=== PATIENT | male | born 1975 | race Caucasian/White ===

== ENCOUNTER 2016-10-10 16:24 | Emergency (ER) ==
--- NOTE | 2016-10-10 18:05 | Diag Imaging Result Document ---
PROCEDURE NAME: CHEST-2 VIEWS - 10/10/2016 CHEST X-RAY 2 VIEWS: COMPARISON: 09/11/15. FINDINGS: The lungs are normally expanded and clear. Heart size and mediastinal contours are normal. No pneumothorax or pleural effusion. IMPRESSION: Negative exam.
--- NOTE | 2016-10-10 18:08 | PROVIDER DOCUMENTATION ---
HPI-General Adult - General Chief Complaint: Cold Symptoms Stated Complaint: COLD/SINUS SX Time Seen by Provider: 10/10/16 17:39 Source: patient Allergies/Adverse Reactions: Patient Allergies Allergy/AdvReac Type Severity Reaction Status Date / Time latex Allergy Mild ITCHING Verified 06/20/16 14:06 Home Medications: Home Medication List Medication Instructions Recorded Confirmed Last Taken Type Cyclobenzaprine [Flexeril] 10 mg PO TID #20 tablet 06/20/16 Unknown Rx Naproxen 500 mg PO BID PRN #30 tablet 06/20/16 Unknown Rx Azithromycin [Zithromax Z-Lefty] 250 mg PO DIRECTED #1 pkg 10/10/16 Unknown Rx Guaifenesin/D-Methorphan Hb/PE 1 each PO Q6-8H PRN PRN #14 tablet 10/10/16 Unknown Rx [Deconex Dmx Tablet] Prednisone 20 mg PO DAILY #6 tablet 10/10/16 Unknown Rx - History of Present Illness -Gen Adult Nature of Presenting Problems: This pt presents today c complaints of flu-like symptoms X 3-4 days. He reports productive cough, chills, body aches. He is unsure if he has had any fevers. No respiratory distress. No other issues or complaints. Location of Pain/Injury: reports: generalized Quality of Pain: reports: aching Severity: reports: mild Onset/Duration: reports: 4 days ago Timing: reports: still present Modifying Factors: improves with: coughing Associated Symptoms: reports: cough, fatigue, fever/chills, muscle aches, sinus congestion/drainage Similar Symptoms Previously?: No Recently seen or treated by another doctor?: No Review of Systems - Adult - REVIEW OF SYSTEMS - ADULT Constitutional: reports: chills, fatique. denies: night sweats, weight gain Eyes: reports: no symptoms reported. denies: discharge, dry eyes Ears, Nose, Mouth & Throat: reports: sinus problem. denies: ear discharge, ear pain Cardiovascular: reports: no symptoms reported. denies: chest pain, edema Respiratory: reports: cough. denies: chronic cough, pleurisy, shortness of breath Gastrointestinal: reports: no symptoms reported. denies: abdominal pain, hematemesis Genitourinary: reports: no symptoms reported. denies: dysuria, discharge Musculoskeletal: reports: muscle aches. denies: bone pain, back pain Integumentary: reports: no symptoms reported. denies: hives, hair loss Neurological: reports: no symptoms reported. denies: ataxia, dizziness/vertigo Psychiatric: reports: no symptoms reported. denies: anxiety, anti-depressant use Endocrine: reports: no symptoms reported Hematologic/Lymphatic: reports: no symptoms reported Allergic/Immunologic: reports: no symptoms reported All Other Systems: Reviewed and Negative Past History - Adult - PAST MEDICAL HISTORY-ADULT Review of Records: reports: Old Records Reviewed, Nursing Assessment Review, Medications Reviewed, Social history reviewed & non-contributory. Major Childhood Illnesses: reports: denies history Cardiovascular: reports: denies history Respiratory: reports: denies history Gastrointestinal: reports: GERD Obstetrical/Gynecological: reports: denies history Genitourinary: reports: denies history Musculoskeletal: reports: denies history Neurological: reports: denies history Endocrine/Immune: reports: denies history Other Conditions: reports: denies history - PRIOR SURGERIES/PROCEDURES Surgical/Procedure History: reports: reviewed, not pertinent, other (left kidney removed) - FAMILY HISTORY Family History: reviewed, not pertinent Physical Exam-General - PHYSICAL EXAM-ADULT Initial Vital Signs Reviewed: Yes - CONSTITUTIONAL General Appearance: appears well, alert, no apparent distress - EYES Eyes: PERRL/EOMI, pink conjunctivae - HEAD, EARS, NOSE, MOUTH & THROAT HENMT: normocephalic/atraumatic, moist mucous membranes, normal ENT inspection - NECK Neck: non-tender, full range of motion, supple, normal inspection - RESPIRATORY Respiratory: chest non-tender, no pleuratic chest pain, no respiratory distress , no accessory muscle use, rhonchi (generalized (mostly posterior)). negative: respiratory distress, decreased breath sounds, accessory muscle use, crackles, rales, stridor, wheezing - CARDIOVASCULAR Cardiovascular: normal peripheral pulses, regular rate, rhythm, no edema, no gallop, no JVD, no murmur - GASTROINTESTINAL (ABDOMEN) Abdominal Exam: normal bowel sounds, non tender, soft - MUSCULOSKELETAL Back Exam: normal inspection, no CVA tenderness, no vertebral tenderness Extremity: normal range of motion, non-tender, normal gait, normal inspection - SKIN Integumentary: normal color, normal turgor, warm/dry - NEUROLOGIC Neurologic: grossly normal, no motor/sensory deficits - PSYCHIATRIC Psych/Mental Status: normal mood/affect, normal thought content, normal thought process, oriented x 3 Progress - PLAN OF CARE/RESULTS Progress/Plan/Lab Results: Orders Category Date Time Status CHEST-2 VIEWS [RAD] Stat Exams 10/10/16 16:54 Draft DIRECT STREP Stat Lab 10/10/16 16:55 Completed INFLUENZA SCREEN A/B Stat Lab 10/10/16 16:55 Completed Vital Signs Temp Pulse Resp BP Pulse Ox 10/10/16 16:52 98.3 F 77 16 126/87 97 latex Allergy (Mild, Verified 06/20/16 14:06) ITCHING Cyclobenzaprine [Flexeril] 10 mg PO TID #20 tablet 06/20/16 Naproxen 500 mg PO BID PRN #30 tablet 06/20/16 - XRAY 1 XRAY Study: Chest XRAY Interpretation: nad Departure - Departure Time of Disposition Order: 18:07 DIAGNOSIS: Bronchitis Disposition: HOME 01 Certified Medical Emergency: Urgent Condition: Good Additional Instructions: Take medication as prescribed. Follow up with your primary care provider. ED Follow Up Instructions: You have been treated by a care provider in the Emergency Department. These instructions are being provided to you so you can have an understanding of how to care for yourself upon discharge. Upon discharge from the Emergency Department, you are responsible for making arrangements for follow-up care by a physician of your choice. Take all prescribed medications as directed. Return to the Emergency Department immediately for any new or worsening symptoms. You may call the Physician Referral phone number at [phone] to obtain a list of Physicians who are taking new patients. Prescriptions: Guaifenesin/D-Methorphan Hb/PE [Deconex Dmx Tablet] 1 each PO Q6-8H PRN PRN #14 tablet PRN Reason: Cough and congestion Prednisone 20 mg PO DAILY #6 tablet Azithromycin [Zithromax Z-Lefty] 250 mg PO DIRECTED #1 pkg Attestation - Physician/ TONNY Attestation Patient care was provided by Advanced Practice Provider:: Yes Advanced Practice Provider:: Teofilo Virk Advanced Practice Provider documentation review:: The Mid-level provider documentation, treatment plan and medical decision making was reviewed by the physician who agrees with all treatment and medical decision making by the MLP.
[2016-10-10 19:31] VITALS: BP 134/85
== END 2016-10-10 19:27 | disposition home or self-care (01) ==
LOC: ED 16:24
DX: J40 Bronchitis, not specified as acute or chronic (principal); R05 Cough; R53.83 Other fatigue; R50.9 Fever, unspecified; M79.1 Myalgia; R09.81 Nasal congestion; K21.9 Gastro-esophageal reflux disease without esophagitis
CPT/HCPCS: 71020; 87081; 87430; 87804